=== PATIENT | male | born 1950 | race Caucasian/White ===

== ENCOUNTER 2017-10-24 00:34 | Emergency (ER) | payer MEDICARE, OTHER ==
[2017-10-24] MEDS ORDERED: Clindamycin Phosphate 900 MG in Sodium Chloride 0.9% 100 ML IV ONE (00:44)
--- NOTE | 2017-10-24 00:49 | EDM.PDOC ---
ED HPI GENERAL MEDICAL PROBLEM - General Chief Complaint: Wound Recheck Stated Complaint: KNEE REPLACEMENT INFECTED INCISION [id number] Time Seen by Provider: 10/24/17 00:45 Source of Information: Reports: Patient History Limitations: Reports: No Limitations - History of Present Illness INITIAL COMMENTS - FREE TEXT/NARRATIVE: s/p knee replacement 4 weeks, 2 days ago few areas broke open with blood & pus drainage now only one area is red & swollen. spouse states knee swelling has gone down alot but pt has h/o MRSA. Right Knee Pain Score (Numeric/FACES): 2 - Related Data Allergies Allergy/AdvReac Type Severity Reaction Status Date / Time No Known Allergies Allergy Verified 10/24/17 01:18 Home Meds: Home Meds Aspirin [Leona Chewable] 81 mg PO DAILY 02/23/15 [History] Enalapril [Vasotec] 2.5 mg PO BID 02/23/15 [History] Fish Oil/[place]-3 Fatty Acids [Fish Oil] 1 each PO DAILY 02/23/15 [History] Insulin Aspart [NovoLOG] 100 unit SUBCUT TIDAC 02/23/15 [History] Insulin Glarg,Human.Rec.Analog [LantUS] 25 unit SUBCUT DAILY 02/23/15 [History] Multivitamin with Minerals [Multiple Vitamin] 1 tab PO DAILY 02/23/15 [History] Simvastatin [Zocor] 20 mg PO BEDTIME 02/23/15 [History] Tamulosin 0.4 mg PO DAILY 03/09/15 [History] traMADol [Ultram] 1 tab PO Q6H PRN 10/24/17 [History] Past Medical History Other Genitourinary History: 2 weeks ago had urinary catheter placed due to inablility to void ED ROS GENERAL - Review of Systems Review Of Systems: ROS reveals no pertinent complaints other than HPI. ED EXAM, SKIN/RASH Exam: See Below Exam Limited By: No Limitations General Appearance: Alert, WD/WN, No Apparent Distress Ears: Hearing Grossly Normal Throat/Mouth: Normal Voice, No Airway Compromise Head: Atraumatic Neck: Non-Tender, Full Range of Motion Respiratory/Chest: No Respiratory Distress Cardiovascular: Regular Rate, Rhythm GI/Abdominal: Soft, Non-Tender Extremities: Other (right knee one area proximally with 1" size redness no lymphangitis no drainage, ROM no problem, NV wnl) Neurological: Alert, Oriented, Normal Cognition, Normal Gait, No Motor/Sensory Deficits Psychiatric: Normal Affect, Normal Mood Skin: Warm, Dry, Normal Color Location, Skin: Lower Extremity, Right Associated features: Warmth, Tenderness, Swelling, Inflammation. No: Lymphangitis, Crusting, Weeping Lymphatic: No Adenopathy Course - Vital Signs Last Recorded V/S: Last Vital Signs Temp 36.6 C 10/24/17 00:45 Pulse 78 10/24/17 00:45 Resp 18 10/24/17 00:45 BP 128/86 10/24/17 00:45 Pulse Ox 100 10/24/17 00:45 - Orders/Labs/Meds Labs: Laboratory Tests 10/24/17 10/24/17 10/24/17 Range/Units 00:50 00:50 00:50 WBC 7.8 (5.0-10.0) 10^3/uL RBC 4.64 (4.6-6.2) 10^6/uL Hgb 14.7 (14.0-18.0) g/dL Hct 44.0 (40.0-54.0) % MCV 94.8 (80-100) fL MCH 31.7 (27.0-34.0) pg MCHC 33.4 (33.0-35.0) g/dL Plt Count 238 (150-450) 10^3/uL Neut % (Auto) 63.8 (42.2-75.2) % Lymph % (Auto) 24.7 (20.5-50.1) % [place] % (Auto) 9.3 H (2-8) % Eos % (Auto) 1.9 (1.0-3.0) % Baso % (Auto) 0.3 (0.0-1.0) % Sodium 138 (135-145) mmol/L Potassium 3.9 (3.6-5.0) mmol/L Chloride 102 (101-111) mmol/L Carbon Dioxide 30.0 (21.0-31.0) mmol/L Anion Gap 9.9 BUN 19 H (7-18) mg/dL Creatinine 0.9 (0.6-1.3) mg/dL Est Cr Clr Drug Dosing 88.78 mL/min Estimated GFR (MDRD) > 60 BUN/Creatinine Ratio 21.11 Glucose 72 L (74-105) mg/dL Lactic Acid 0.9 (0.5-2.2) mmol/L Calcium 9.3 (8.4-10.2) mg/dl Total Bilirubin 1.4 H (0.2-1.0) mg/dL AST 20 (10-42) IU/L ALT 12 (10-60) IU/L Alkaline Phosphatase 90 (42-121) IU/L Total Protein 7.4 (6.7-8.2) g/dl Albumin 3.7 (3.2-5.5) g/dl Globulin 3.7 Albumin/Globulin Ratio 1.00 Meds: Medications Discontinued Medications Generic Name Dose Route Start Last Admin Trade Name Freq PRN Reason Stop Dose Admin Clindamycin Phosphate 900 mg/ 106 mls @ 200 mls/hr 10/24/17 00:44 10/24/17 00 :59 Sodium Chloride IV 10/24/17 01:15 200 mls/hr ONETIME ONE Administration - Re-Assessments/Exams Free Text/Narrative Re-Assessment/Exam: 10/24/17 01:27 results discussed with pt & spouse. Departure - Departure Time of Disposition: 01:28 Disposition: Home, Self-Care 01 Condition: Good Clinical Impression: Post op infection Qualifiers: Encounter type: initial encounter Qualified Code(s): T81.4XXA - Infection following a procedure, initial encounter - Discharge Information Instructions: Wound Infection, [id number] Forms: ED Department Discharge Additional Instructions: 1) elevate leg as much as possible 2) notify surgeon or family doctor tomorrow rx given; clindamycin 150mg qid x 40
[2017-10-24 01:16] LABS: ANION GAP 9.9; CHLORIDE,CL 102 mmol/L (101-111); SODIUM,NA 138 mmol/L (135-145)
[2017-10-24 01:48] VITALS: BP 120/87
== END 2017-10-24 01:40 | disposition home or self-care (01) ==
LOC: DL.ED 00:34
DX: T81.4XXA Infection following a procedure, initial encounter (principal); Z79.82 Long term (current) use of aspirin; Z79.899 Other long term (current) drug therapy; Z79.4 Long term (current) use of insulin; Z96.651 Presence of right artificial knee joint
CPT/HCPCS: 36415; 80053; 83605; 85025; 96365; 99283; J7050; S0077

== ENCOUNTER 2018-07-27 05:34 | Day surgery (SDC) | payer MEDICARE, OTHER ==
[2018-07-27] MEDS ORDERED: Midazolam 1 MG/ML 2 ML SDV IV ONE ×6 (05:35→06:38)
[2018-07-27] MEDS ORDERED: fentaNYL 100 MCG/2 ML SDV IV ONE ×3 (05:35→06:28)
[2018-07-27] MEDS ORDERED: Dextrose 5%-0.45% NaCl 1,000 ML IV SCH (06:00)
[2018-07-27] MEDS ORDERED: Sodium Chloride 0.9% 10 ML Syringe FLUSH PRN (06:00)
[2018-07-27] MEDS ORDERED: fentaNYL 100 MCG/2 ML SDV ONE (06:16)
[2018-07-27] MEDS ORDERED: Midazolam 1 MG/ML 2 ML SDV ONE (06:16)
[2018-07-27 08:39] VITALS: BP 122/78
--- NOTE | 2018-07-27 13:14 | OR ---
DATE: 07/27/2018 PROCEDURE PERFORMED: Total colonoscopy. INSTRUMENT USED: CF-HQ19AL Olympus video colonoscope. PREMEDICATIONS: Fentanyl 100 mcg intravenous, Versed 3 mg intravenous. Nasal O2 cannula. The procedure was done under pulse oximetry, BP recording, and engine monitor. INDICATION: The patient with previous colonic adenoma. Surveillance colonoscopic examination is done for detection of any polypoid lesions and removal, endoscopic hemostasis therapy if needed. DESCRIPTION OF PROCEDURE: Initial rectal exam was unremarkable. Rigid anoscopy was normal. The colonoscope was passed with ease. Numerous scattered diverticula were noted in the distal left colon along with deformity. The scope was passed with ease up to the ileocecal area. Photographs were taken of the normal-appearing cecum, identified by landmarks of appendiceal orifice and double-bulged ileocecal folds. No bleeding was noted from any of the visualized areas at the commencement of the examination. No stricture. No vascular ectasia. No large isolated ulcerations seen. No evidence of diffuse inflammatory bowel disease in the form of friability, contact bleeding, or ulcerations. No polyp or tumor mass identified. There was moderate amount of liquid fecal material that had to be aspirated. Bowel preparation was [place] scale 2. Probing the proximal sides of folds and flexures using adequate distention and clearing up the stool material, withdrawal of the scope was made, cecum to rectum time was 6 minutes. No bleeding was noted from any of the visualized areas at the completion of examination. IMPRESSION: Diverticulosis. The patient tolerated the procedure well. [facility] /[id number]
--- NOTE | 2018-07-27 14:56 | LETTER ---
07/27/2018 Ernestina Milligan, [address] [place] [address] RE: RICHARD TAYLOR : 1950 Dear Ms. Milligan: Mr. Richard Taylor had colonoscopic examination done this morning and he tolerated the procedure well. I herewith send a copy of the endoscopy note and photographs for your review. Thank you. Sincerely, [facility] /[id number]
== END 2018-07-27 08:49 | disposition home or self-care (01) ==
LOC: DL.ENDO 05:34
PROVIDERS: ATTEND Internal Medicine Gastroenterology
DX: Z12.11 Encounter for screening for malignant neoplasm of colon (principal); K57.30 Diverticulosis of large intestine without perforation or abscess without bleeding; Z86.010 Personal history of colon polyps; E78.00 Pure hypercholesterolemia, unspecified; E10.8 Type 1 diabetes mellitus with unspecified complications; Z79.01 Long term (current) use of anticoagulants; Z79.82 Long term (current) use of aspirin; Z79.4 Long term (current) use of insulin
CPT/HCPCS: 45378; J7042; J2250; J3010

== ENCOUNTER → 2018-09-25 | Outpatient (CLI) | payer OTHER ==
[~2018-09-25] MED LIST: Iopamidol 612 MG/ML 50 ML SDV IVPUSH ONE; methylPREDNISolone Acetate 40 MG/ML SDV IARTIC ONE
--- NOTE | 2018-09-25 14:40 | CR ---
CLINICAL HISTORY: 68-year-old male with right hip joint pain exacerbated by "golfing" (planning a golf trip to [place]). TECHNIQUE: Patient counseled regarding the hip injection procedure and attendant risks to include infection, pain, bleeding, contrast reaction, etc. Employing sterile technique and 1% Xylocaine skin anesthesia a 22-gauge needle was satisfactorily introduced into the right hip joint capsule (single pass) under fluoroscopic guidance and after confirming intra-articular location with nonionic Isovue contrast a total of 5 cc 1% lidocaine and 80 mg Depo-Medrol was introduced. Patient tolerated procedure extremely well and left the department in stable condition with instructions to observe for any signs of post procedural infection and keep a daily calendar or log with regard to postinjection symptomatology. Five spot films. 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 CONCLUSION: Successful/satisfactory right hip injection.
== END ==
LOC: DL.DI 10:12
PROVIDERS: ATTEND Orthopaedic Surgery
DX: M16.11 Unilateral primary osteoarthritis, right hip (principal)
CPT/HCPCS: 20610; 77002; J1030; J2001; Q9967

== ENCOUNTER 2021-01-27 19:54 | Emergency (ER) | payer MEDICARE, OTHER ==
[2021-01-27 20:36] VITALS: BP 141/73; PULSE 100
[2021-01-27 21:08] LABS: CORONAVIRUS COVID-19 NAA NEGATIVE (NEGATIVE)
--- NOTE | 2021-01-27 21:42 | EDM.PDOC ---
ED HPI GENERAL MEDICAL PROBLEM - General Chief Complaint: Respiratory Problem Stated Complaint: COVID 97.7, MUKUS COUGHING, FATIGUE Time Seen by Provider: 01/27/21 21:36 Source of Information: Reports: Patient History Limitations: Reports: No Limitations - History of Present Illness INITIAL COMMENTS - FREE TEXT/NARRATIVE: 70 y/o M c/o productive green, cough, stuffy head, runny nose for 8 -9 days. He reports this afternnon he felt tired adn run down and ended up taking a nap. He awoke and began feeling better but wanted to come to the ER for eval. Denies fever, chills, db, abd pn, cp, neck pn, ear pn, trauma, extremity pn, drugs, etoh. - Related Data Allergies Allergy/AdvReac Type Severity Reaction Status Date / Time No Known Allergies Allergy Verified 01/27/21 21:18 Home Meds: Home Meds Aspirin [Leona Chewable] 81 mg PO DAILY 02/23/15 [History] Insulin Aspart [NovoLOG] 100 unit SUBCUT TIDAC 02/23/15 [History] Insulin Glarg,Human.Rec.Analog [LantUS] 25 unit SUBCUT DAILY 02/23/15 [History] Multivitamin with Minerals [Multiple Vitamin] 1 tab PO DAILY 02/23/15 [History] Simvastatin [Zocor] 20 mg PO BEDTIME 02/23/15 [History] Tamulosin 0.4 mg PO DAILY 03/09/15 [History] Cholecalciferol (Vitamin D3) [Vitamin D] 2,000 units PO DAILY 07/26/18 [History] Dabigatran Etexilate Mesylate [Pradaxa] 150 mg PO BID 07/27/18 [History] Past Medical History HEENT History: Reports: Impaired Vision Other HEENT History: wears glasses Cardiovascular History: Reports: Afib, CAD Respiratory History: Reports: Sleep Apnea Gastrointestinal History: Reports: None Genitourinary History: Reports: Retention, Urinary Other Genitourinary History: 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 Musculoskeletal History: Reports: None Neurological History: Reports: None Psychiatric History: Reports: None Endocrine/Metabolic History: Reports: Diabetes, Type I, IDDM Hematologic History: Reports: None Immunologic History: Reports: None Oncologic (Cancer) History: Reports: None Dermatologic History: Reports: None - Infectious Disease History Infectious Disease History: Reports: Chicken Pox, Measles, MRSA, Mumps - Past Surgical History HEENT Surgical History: Reports: None Cardiovascular Surgical History: Reports: Other (See Below) Other Cardiovascular Surgeries/Procedures: Angiogram Respiratory Surgical History: Reports: None GI Surgical History: Reports: Colonoscopy Male Surgical History: Reports: None Endocrine Surgical History: Reports: None Neurological Surgical History: Reports: None Musculoskeletal Surgical History: Reports: Knee Replacement Other Musculoskeletal Surgeries/Procedures:: Bileteral knee. Left knee - 2005. Right knee - September 26, 2017 ([facility] Oncologic Surgical History: Reports: None Dermatological Surgical History: Reports: None Social & Family History - Family History Family Medical History: No Pertinent Family History - Tobacco Use Tobacco Use Status *Q: Never Tobacco User - Caffeine Use Caffeine Use: Reports: None Other Caffeine Use: dionna orange - Recreational Drug Use Recreational Drug Use: No ED ROS GENERAL - Review of Systems Review Of Systems: Comprehensive ROS is negative, except as noted in HPI. ED EXAM, GENERAL - Physical Exam Exam: See Below Exam Limited By: No Limitations General Appearance: Alert, No Apparent Distress Eye Exam: Bilateral Eye: PERRL Ears: Normal External Exam, Normal Canal, Hearing Grossly Normal, Normal TMs Nose: Nasal Swelling Throat/Mouth: Normal Inspection, Normal Lips, Normal Teeth, Normal Gums, Normal Oropharynx, Normal Voice, No Airway Compromise Head: Atraumatic, Normocephalic Neck: Supple, Non-Tender Respiratory/Chest: No Respiratory Distress, Lungs Clear, Normal Breath Sounds Cardiovascular: Normal Peripheral Pulses, Regular Rate, Rhythm, No JVD, No Murmur GI/Abdominal: Soft, Non-Tender (Male) Exam: Deferred Rectal (Males) Exam: Deferred Back Exam: Normal Inspection, Full Range of Motion Extremities: Normal Inspection, Normal Range of Motion, Non-Tender, Normal Capillary Refill, No Pedal Edema Neurological: Alert, Oriented, Normal Reflexes Psychiatric: Normal Affect, Normal Mood Skin Exam: Warm, Dry, Intact Course - Vital Signs Last Recorded V/S: Last Vital Signs Temp 99.5 F 01/27/21 20:34 Pulse 100 01/27/21 20:34 Resp 20 01/27/21 20:34 BP 141/73 H 01/27/21 20:34 Pulse Ox 96 01/27/21 20:34 - Orders/Labs/Meds Labs: Laboratory Tests 01/27/21 Range/Units 20:18 Influenza Type A RNA Negative (NEGATIVE) Influenza Type B RNA Negative (NEGATIVE) SARS-CoV-2 RNA (LY) Negative (NEGATIVE) - Re-Assessments/Exams Free Text/Narrative Re-Assessment/Exam: 01/27/21 21:40 Pt states he feels much better after resting and has no complaints. Covid Neg flu neg. The pt likely has bronchitis and I do not believe he needs any treatment or intervention at this time as his symptoms appear to be resolving. Departure - Departure Time of Disposition: 21:43 Disposition: Home, Self-Care 01 Condition: Good Clinical Impression: Acute bronchitis Qualifiers: Bronchitis organism: unspecified organism Qualified Code(s): J20.9 - Acute bronchitis, unspecified - Discharge Information *PRESCRIPTION DRUG MONITORING PROGRAM REVIEWED*: Not Applicable *COPY OF PRESCRIPTION DRUG MONITORING REPORT IN PATIENT JUANA: Not Applicable Instructions: Acute Bronchitis, Adult, [id number] Additional Instructions: if symptoms do not resolve in 10-14 days contact your primary care facility. If any new symptoms or concerns develop contact your primary care facility or return to the ER. Sepsis Event Note (ED) - Evaluation Sepsis Screening Result: No Definite Risk - Focused Exam Vital Signs: Vital Signs Temp Pulse Resp BP Pulse Ox 01/27/21 20:34 99.5 F 100 20 141/73 H 96
== END 2021-01-27 21:50 | disposition home or self-care (01) ==
LOC: DL.ED 19:54
DX: J20.9 Acute bronchitis, unspecified (principal); I25.10 Atherosclerotic heart disease of native coronary artery without angina pectoris; E10.9 Type 1 diabetes mellitus without complications; Z79.82 Long term (current) use of aspirin; Z79.4 Long term (current) use of insulin; Z20.822 Contact with and (suspected) exposure to COVID-19
CPT/HCPCS: 0240U; 99283

== ENCOUNTER 2021-08-10 02:18 | Inpatient (IN) | payer OTHER, MEDICARE ==
[2021-08-10] MEDS ORDERED: Sodium Chloride 0.9% 1,000 ML IV ONE ×2 (02:30→03:34)
[2021-08-10] MEDS ORDERED: Ondansetron 4 MG/2 ML SDV IVPUSH ONE (02:37)
[2021-08-10] MEDS ORDERED: 50% Dextrose in Water 50 ML Syringe IVPUSH PRN ×2 (02:48→03:31)
[2021-08-10] MEDS ORDERED: Glucagon,Human Recombinant 1 MG Vial IM PRN ×2 (02:48→03:31)
[2021-08-10] MEDS ORDERED: Insulin Regular, Human 100 Units/ML 3 ML Vial IV ONE (02:48)
[2021-08-10 02:55] LABS: BASE EXCESS ARTERIAL -15 mmol/L ((-2)-(+3)); BICARBONATE,ARTERIAL 9.9 mmol/L (22-26); O2 DELIVERY DEVICE ROOM AIR; O2 SATURATION ARTERIAL 97 % (95-100); PCO2 ARTERIAL 21 mmHg (35-45); PO2 ARTERIAL 93 mmHg (70-100)
[2021-08-10 02:57] LABS: O2 FLOW RATE 0
[2021-08-10 03:11] LABS: ANION GAP 30.5 mEq/L (7-13); CHLORIDE,CL 96 mmol/L (98-107); SODIUM,NA 134 mmol/L (136-145)
[2021-08-10] MEDS ORDERED: Insulin Regular in 0.9 % NACL 100 ML ONE (03:37)
[2021-08-10 04:15] LABS: CORONAVIRUS COVID-19 NAA NEGATIVE (NEGATIVE)
[2021-08-10] MEDS ORDERED: Bisacodyl 5 MG Tab PO PRN (05:21)
[2021-08-10] MEDS ORDERED: Ondansetron 4 MG/2 ML SDV IVPUSH PRN (05:21)
[2021-08-10] MEDS ORDERED: Albuterol/Ipratropium 3.0-0.5 MG/3 ML Neb Soln NEB PRN (05:21)
[2021-08-10] MEDS ORDERED: Acetaminophen/HYDROcodone 325-5 MG Tab PO PRN (05:21)
[2021-08-10] MEDS ORDERED: Polyethylene Glycol 3350 Powder 17 GM Packet PO PRN (05:21)
[2021-08-10] MEDS ORDERED: Acetaminophen 325 MG Tab PO PRN (05:21)
[2021-08-10] MEDS ORDERED: Magnesium Hydroxide 400 MG/5 ML Susp 30 ML Cup PO PRN (05:21)
[2021-08-10] MEDS ORDERED: HYDROmorphone 0.5 MG/0.5 ML Syringe IVPUSH PRN (05:21)
[2021-08-10] MEDS ORDERED: Lactated Ringers 1,000 ML IV ONE (05:29)
[2021-08-10] MEDS ORDERED: hydrALAZINE 20 MG/ML SDV IVPUSH PRN (06:28)
[2021-08-10] MEDS ORDERED: Metoprolol Tartrate 5 MG/5 ML SDV IVPUSH PRN (06:28)
[2021-08-10 06:53] LABS: ANION GAP 18.1 mEq/L (7-13)
[2021-08-10] MEDS ORDERED: Dextrose 5%-0.9% NaCl 1,000 ML IV SCH (09:30)
[2021-08-10 10:07] LABS: ANION GAP 13.1 mEq/L (7-13)
[2021-08-10] MEDS ORDERED: ACETAMINOPHEN 650 MG PO PRN (13:22)
[2021-08-10] MEDS ORDERED: Sodium Chloride 0.9% 250 ML IV SCH (13:45)
[2021-08-10] MEDS ORDERED: Sodium Chloride 0.9% 1,000 ML IV SCH (14:00)
[2021-08-10] MEDS ORDERED: atorvaSTATin 20 MG Tab PO SCH (21:00)
[2021-08-10] MEDS: Dabigatran 75 MG Cap PO SCH (21:02)
[2021-08-11 07:43] VITALS: BP 117/67; PULSE 61
[2021-08-11] MEDS: Dabigatran 75 MG Cap PO SCH (08:00)
[2021-08-11] MEDS ORDERED: Multivitamins with Iron/Calcium/Folic Acid/Minerals Tab PO SCH (09:00)
[2021-08-11] MEDS ORDERED: Aspirin 81 MG Tab.EC PO SCH (09:00)
[2021-08-11] MEDS ORDERED: Cholecalciferol (Vitamin D3) 25 MCG Tab PO SCH (09:00)
[2021-08-11] MEDS ORDERED: Tamsulosin 0.4 MG Cap.ER PO SCH (09:00)
== END 2021-08-11 10:00 | disposition home or self-care (01) | DRG 919 ==
LOC: DL.ED 02:18 → EEVIPCON 03:46 → DL.MS 03:46
PROVIDERS: ADMIT Internal Medicine; ATTEND Internal Medicine
DX: T85.694A Other mechanical complication of insulin pump, initial encounter (principal); E10.10 Type 1 diabetes mellitus with ketoacidosis without coma; G93.41 Metabolic encephalopathy; N17.9 Acute kidney failure, unspecified; E87.1 Hypo-osmolality and hyponatremia; T38.3X6A Underdosing of insulin and oral hypoglycemic [antidiabetic] drugs, initial encounter; H54.7 Unspecified visual loss; I25.10 Atherosclerotic heart disease of native coronary artery without angina pectoris; G47.30 Sleep apnea, unspecified; R33.9 Retention of urine, unspecified; Z20.822 Contact with and (suspected) exposure to COVID-19; Z79.899 Other long term (current) drug therapy; Z96.41 Presence of insulin pump (external) (internal); Z96.653 Presence of artificial knee joint, bilateral; I10 Essential (primary) hypertension; E78.5 Hyperlipidemia, unspecified; I48.0 Paroxysmal atrial fibrillation; E55.9 Vitamin D deficiency, unspecified; N40.1 Benign prostatic hyperplasia with lower urinary tract symptoms; R33.8 Other retention of urine; M19.90 Unspecified osteoarthritis, unspecified site; E87.5 Hyperkalemia; E87.8 Other disorders of electrolyte and fluid balance, not elsewhere classified; Z79.82 Long term (current) use of aspirin; Z86.19 Personal history of other infectious and parasitic diseases; Z79.4 Long term (current) use of insulin; E10.40 Type 1 diabetes mellitus with diabetic neuropathy, unspecified; E80.6 Other disorders of bilirubin metabolism
CPT/HCPCS: 0240U; 36415; 36600; 80048; 80053; 81003; 82009; 82803; 82947; 83605; 83735; 84100; 85025; 87040; 87086; 93005; 93010; 96374; 99284; 99285-25; A9270-GY; J1815-GY; J2405; J7030; J7042; J7120

== ENCOUNTER 2023-12-19 11:08 | Emergency (ER) | payer OTHER ==
[2023-12-19 11:28] VITALS: BP 138/54; PULSE 95
[2023-12-19] MEDS ORDERED: Glucagon,Human Recombinant 1 MG Vial IM PRN (11:33)
[2023-12-19] MEDS ORDERED: 50% Dextrose in Water 50 ML Syringe IVPUSH PRN (11:33)
[2023-12-19 11:34] LABS: BASOPHILS PERCENT AUTO 0.1 % (0.0-1.0); EOSINOPHILS PERCENT AUTO 0.3 % (1.0-3.0); HEMATOCRIT 45.9 % (40.0-54.0); HEMOGLOBIN 15.4 g/dL (14.0-18.0); LYMPHOCYTES PERCENT AUTO 12.7 % (20.5-50.1); MEAN CORPUSCULAR HEMOGLOBIN 32.2 pg (27.0-34.0); MEAN CORPUSCULAR HGB CONC 33.6 g/dL (33.0-35.0); MEAN CORPUSCULAR VOLUME 95.8 fL (80-100); MONOCYTES PERCENT AUTO 4.6 % (2-8); NEUTROPHILS PERCENT AUTO 82.3 % (42.2-75.2); PLATELET COUNT,PLT 195 10^3/uL (150-450); RED BLOOD CELL COUNT 4.79 10^6/uL (4.6-6.2); WHITE BLOOD CELL COUNT,WBC 7.7 10^3/uL (5.0-10.0)
[2023-12-19] MEDS: Sodium Chloride 0.9% 1,000 ML IV ONE ×2 (11:39→12:06)
[2023-12-19] MEDS: Insulin Regular, Human 100 Units/ML 3 ML Vial IV ONE (11:39)
[2023-12-19 11:50] LABS: ALBUMIN 3.6 g/dL (3.4-5.0); ANION GAP 17.6 mEq/L (7-13); BLOOD UREA NITROGEN,BUN 28 mg/dL (7-18); BUN/CREATININE RATIO 17.9 (No establ ref range); CALCIUM 9.1 mg/dL (8.5-10.1); CARBON DIOXIDE,CO2 23 mmol/L (21-32); CHLORIDE,CL 99 mmol/L (98-107); CREATININE 1.56 mg/dL (0.70-1.30); EST CRCL DRUG DOSING (CG) 46.95 mL/min; POTASSIUM,K 4.6 mmol/L (3.5-5.1); PROTEIN TOTAL,TP 7.3 g/dL (6.4-8.2); SODIUM,NA 135 mmol/L (136-145)
[2023-12-19 11:51] LABS: ALANINE AMINOTRANSFERASE,ALT 21 U/L (16-63); ALKALINE PHOSPHATASE 88 U/L (46-116); ASPARTATE AMNIOTRANSFERASE,AST 20 U/L (15-37); BILIRUBIN TOTAL 3.1 mg/dL (0.2-1.0); MAGNESIUM 1.9 mg/dL (1.8-2.4)
[2023-12-19 11:52] LABS: O2 DELIVERY DEVICE ROOM AIR
[2023-12-19 11:53] LABS: C-REACTIVE PROTEIN < 0.50 ng/dL (<=0.50); ESTIMATED GFR 46 mL/min (>=60); GLUCOSE RANDOM 442 mg/dL (70-99)
[2023-12-19 11:54] LABS: BASE EXCESS VENOUS -5.6 mmol/l ((-2)-(+3)); BICARBONATE,VENOUS 21 mmol/l (19-25); O2 SATURATION VENOUS 64.2 % (60-80); PCO2 VENOUS 45 mmHg (41-51); PH,VENOUS 7.28 (7.31-7.41); PO2 VENOUS 41 mmHg (35-42)
[2023-12-19 12:17] LABS: KETONES,BLOOD SMALL-20 mg/dL
[2023-12-19 12:22] LABS: APPEARANCE,URINE CLEAR (CLEAR); BILIRUBIN,URINE NEGATIVE (NEGATIVE); COLOR,URINE YELLOW (YELLOW); GLUCOSE,URINE >=1000 (NEGATIVE); KETONES,URINE 80 (NEGATIVE); LEUKOCYTE ESTERASE,URINE NEGATIVE (NEGATIVE); NITRITE,URINE NEGATIVE (NEGATIVE); OCCULT BLOOD,URINE TRACE-INTACT (NEGATIVE); PH,URINE 5.5 (5.0-9.0); PROTEIN,URINE NEGATIVE (NEGATIVE); UROBILINOGEN,URINE 0.2 mg/dL (0.2-1.0)
[2023-12-19 12:36] LABS: BACTERIA,URINE RARE /HPF (0-FEW/HPF); EPITHELIAL CELLS,URINE RARE /HPF (NOT SEEN); MUCUS,URINE FEW /LPF (NOT SEEN); RBC,URINE 0-5 /HPF (0-5); WBC,URINE 0-5 /HPF (0-5/HPF)
[2023-12-19 12:37] LABS: AMORPHOUS SEDIMENT,URINE RARE /HPF (NOT SEEN)
[2023-12-19 13:32] LABS: O2 DELIVERY DEVICE ROOM AIR
[2023-12-19 13:35] LABS: BASE EXCESS VENOUS -2.4 mmol/l ((-2)-(+3)); BICARBONATE,VENOUS 23 mmol/l (19-25); O2 SATURATION VENOUS 54 % (60-80); PCO2 VENOUS 45 mmHg (41-51); PH,VENOUS 7.33 (7.31-7.41); PO2 VENOUS 35 mmHg (35-42)
[2023-12-19 13:47] LABS: ANION GAP 11.8 mEq/L (7-13); CALCIUM 8.3 mg/dL (8.5-10.1); CREATININE 1.31 mg/dL (0.70-1.30); EST CRCL DRUG DOSING (CG) 55.91 mL/min; POTASSIUM,K 3.8 mmol/L (3.5-5.1)
== END 2023-12-19 14:05 | disposition home or self-care (01) ==
LOC: DL.ED 11:08
DX: E10.10 Type 1 diabetes mellitus with ketoacidosis without coma (principal); I25.10 Atherosclerotic heart disease of native coronary artery without angina pectoris; I48.91 Unspecified atrial fibrillation; Z79.4 Long term (current) use of insulin; Z79.82 Long term (current) use of aspirin; Z79.899 Other long term (current) drug therapy
CPT/HCPCS: 36415; 80048; 80053; 81001; 82009; 82803; 82947; 83735; 85025; 86140; J1815; J7030; 96360; 99284-25; 99285